=== PATIENT | male | born 1975 | race Caucasian/White ===

== ENCOUNTER 2019-12-31 14:26 | Outpatient (CLI) | payer OTHER, SELFPAY ==
--- NOTE | 2019-12-31 | XR_ITS ---
WS: [id number] RIGHT HAND: 3 VIEW(S) TECHNIQUE: PA, oblique and lateral. HISTORY: RIGHT HAND PAIN COMPARISON: 10/03/2017 No acute fracture or dislocation. Soft tissue swelling along the fifth metacarpal. XR/XR hand RT min 3V* [id number] IMPRESSION: Soft tissue swelling adjacent to the fifth metacarpal. No fracture.
== END 2019-12-31 14:27 | disposition home or self-care (01) ==
PROVIDERS: Family Provider Family Medicine; PCP Family Medicine; Visit Provider Nurse Practitioner Family
DX: Z01.89 Encounter for other specified special examinations (principal)

== ENCOUNTER → 2023-09-02 09:58 | Outpatient (BNVA) | payer OTHER, SELFPAY | PROVIDERS: Family Provider Family Medicine; PCP Family Medicine; Visit Provider Nurse Practitioner Family | DX: M79.629 Pain in unspecified upper arm (principal) | CPT/HCPCS: 80053; 80061; 84443; 85025 ==